=== PATIENT | female | born 1995 | race Two or more races ===

== ENCOUNTER 2017-06-08 08:51 | Day surgery (SDC) | payer OTHER ==
[2017-06-08] VITALS (11 sets, daily range): BP systolic 105–116; BP diastolic 65–76
[~2017-06-08] VITALS: Ht 170.2 cm; Wt 78.9 kg
[~2017-06-08 08:51] MED LIST: NKM; ceFAZolin 1gm in D5W 55ml IVP ONE; celeBREX 200mg Cap **SURGERY PATIENTS ONLY ORAL ONE; oxyCONTIN 20mg tab ORAL ONE
[2017-06-08] MEDS ORDERED: celeBREX 200mg Cap **SURGERY PATIENTS ONLY ORAL ONE (10:46)
[2017-06-08] MEDS ORDERED: Kenalog-40 1ml Vial ONE (11:09)
[2017-06-08] MEDS ORDERED: EPINEPHrine 1mg/1ml Amp ONE (11:10)
[2017-06-08] MEDS ORDERED: Lidocaine 1% 10mg/ml/Epi 0.005mg/ml 30ml vial INJ ONE (11:10)
[2017-06-08] MEDS ORDERED: Ketorolac 30mg Inj ONE ×2 (11:10→12:30)
[2017-06-08] MEDS ORDERED: Bupivacaine 0.5% Inj 30 ml vial INJ ONE (11:10)
[2017-06-08] MEDS ORDERED: Ropivacaine 5mg/ml Vial 30ml INJ ONE (11:10)
[2017-06-08] MEDS ORDERED: Neostigmine 1mg/ml 10ml Inj ONE (12:30)
[2017-06-08] MEDS ORDERED: Metoclopramide 10mg/2ml Inj ONE (12:30)
[2017-06-08] MEDS ORDERED: Propofol 200mg/20ml IV ONE (12:30)
[2017-06-08] MEDS ORDERED: Dexamethasone 4mg/ml vial ONE (12:30)
[2017-06-08] MEDS ORDERED: LR 1000ml ONE (12:30)
[2017-06-08] MEDS ORDERED: Midazolam 2mg/2ml Inj ONE (12:30)
[2017-06-08] MEDS ORDERED: Lidocaine 1% MPF 10mg/ml 5ml ONE (12:30)
[2017-06-08] MEDS ORDERED: Zemuron 50mg/5ml Inj IV ONE (12:30)
[2017-06-08] MEDS ORDERED: Glycopyrrolate 0.2mg/ml 1ml Vial ONE (12:30)
[2017-06-08] MEDS ORDERED: NS Irrig 1000ml ONE (12:30)
[2017-06-08] MEDS ORDERED: fentaNYL 100 mcg/2 mL IV ONE (12:30)
[2017-06-08] MEDS ORDERED: Sterile Water Irrig 1000ml IRRIG ONE (12:30)
[2017-06-08] MEDS ORDERED: Bacitracin Irrig 1000ml IRRIG ONE (12:40)
--- NOTE | 2017-06-08 12:44 | Pre-Procedure Note/Attestation ---
Pre-Procedure Note/Attestation Complete Prior to Procedure Planned Procedure: right Procedure Narrative: shoulder AC joint reconstruction Indications for Procedure Pre-Operative Diagnosis: right ac joint dislocation Attestation I attest that I discussed the nature of the procedure; its benefits; risks and complications; and alternatives (and the risks and benefits of such alternatives ), prior to the procedure, with the patient (or the patient's legal auto service representative). I attest that, if there was a reasonable possibility of needing a blood transfusion, the patient (or the patient's legal auto service representative) was given the [facility] standardized written summary, pursuant to the [employer]harath [employer]compte Blood Safety Act ([place] Health and Safety Code # 1645, as amended). I attest that I re-evaluated the patient just prior to the surgery and that there has been no change in the patient's H&P, except as documented below: CORDELIA ARROYO Jun 08, 2017 12:44
--- NOTE | 2017-06-08 12:45 | Operative Note - PDOC ---
Operative Note Operative Note Pre-op Diagnosis: right ac joint dislocation Procedure: right ac joint reconstruction Post-op Diagnosis: same as pre-op plus Operative Findings: consistent w/pre-op dx studies Anesthesia: regional Specimen: none Complications: none Condition: stable Estimated Blood Loss: none Implant(s) used?: Yes CORDELIA ARROYO Jun 08, 2017 12:45
[2017-06-08] MEDS ORDERED: Metoclopramide 10mg/2ml Inj IVP PRN ×2 (14:00→14:45)
[2017-06-08] MEDS ORDERED: DiphenhydrAMINE 50mg/ml Inj IVP PRN (14:00)
[2017-06-08] MEDS ORDERED: Acetaminophen (Non formulary) 100 ML IV ONE (14:00)
[2017-06-08] MEDS ORDERED: fentaNYL 100 mcg/2 mL IV PRN (14:00)
--- NOTE | 2017-06-08 14:07 | Anethesia Preoperative Eval ---
Anesthesia Pre-op PMH/ROS General Date of Evaluation: Jun 08, 2017 Time of Evaluation: 12:30 Anesthesiologist: joann ASA Score: ASA 1 Mallampati Score Class I : Soft palate, uvula, fauces, pillars visible Class II: Soft palate, uvula, fauces visible Class III: Soft palate, base of uvula visible Class IV: Only hard plate visible Mallampati Classification: Class II Surgeon: john Diagnosis: shoulder ligament tear Surgical Procedure: right shoulder ligament repair Anesthesia History: none Family History: no anesthesia problems Allergies: Coded Allergies: No Known Allergies (Unverified , 06/07/17) Medications: see eMAR Past Medical History Cardiovascular: Denies: HTN, CAD, VT, valve dz, arrhythmia, other Pulmonary: Denies: asthma, COPD, TERE, other Gastrointestinal/Genitourinary: Denies: GERD, CRI, ESRD, other Neurologic/Psychiatric: Denies: dementia, CVA, depression/anxiety, TIA, other Endocrine: Denies: DM, hypothyroidism, steroids, other HEENT: Denies: cataract (L), cataract (R), glaucoma, ABSENTEE-SHAWNEE (L), ABSENTEE-SHAWNEE (R), other Hematology/Immune: Denies: anemia, DVT, bleeding disorder, other Musculoskeletal/Integumentary: Denies: OA, RA, DJD, DDD, edema, other PSxH Narrative: none Anesthesia Pre-op Phys. Exam Physician Exam Last Vital Signs Date Time Temp Pulse Resp B/P (MAP) Pulse Ox O2 Delivery O2 Flow Rate FiO2 06/08/17 09:55 98.9 71 16 116/66 97 Room Air Constitutional: NAD Neurologic: CN 2-12 intact Cardiovascular: RRR Respiratory: CTA Gastrointestinal: S/NT/ND Airway Exam Mallampati Classification 2 Mallampati Score: Class II MO: full Neck: normal TMD: 2fb ROM: full Dentures: no upper, no lower Anesthesia Pre-op A/P Labs Urine Test Test 06/08/17 09:00 Urine HCG, Qualitative Negative Studies Pre-op Studies: EKG - sr Risk Assessment & Plan Plan: general and peripheral nerve block Status Change Before Surgery: No Pre-Antibiotics Drug: ancef Given Within 1 Hr of Incision: Yes Time Given: 12:40 GRICEL GALICIA CRNA Jun 08, 2017 14:07
[2017-06-08] MEDS ORDERED: Bacitracin 50000 Units Vial ONE (14:56)
--- NOTE | 2017-06-08 15:42 | Immediate Post-Op Evaluation ---
Immediate Post-Op Evalulation Immediate Post-Op Evalulation Procedure: right shoulder ligament reconstruction Date of Evaluation: Jun 08, 2017 Time of Evaluation: 15:35 IV Fluids: 800 Blood Pressure Systolic: 110 Blood Pressure Diastolic: 64 Pulse Rate: 97 Respiratory Rate: 14 O2 Sat by Pulse Oximetry: 100 Temperature (Fahrenheit): 97.3 Pain Score (1-10): 0 Nausea: No Vomiting: No Complications pt is difficult intubation with anterior airway; glidescope intubation with moderate difficulty Patient Status: awake, reacts, patent Hydration Status: adequate Drug: ancef Given Within 1 Hr of Incision: Yes Time Given: 12:40 GRICEL GALICIA CRNA Jun 08, 2017 15:42
--- NOTE | 2017-06-08 16:59 | 48 Hour Post Anesthesia Eval ---
Post Anesthesia Evaluation Procedure: right shoulder ligament reconstruction Date of Evaluation: Jun 08, 2017 Time of Evaluation: 16:59 Blood Pressure Systolic: 107 0: 71 Pulse Rate: 90 O2 Sat by Pulse Oximetry: 99 Airway: patent Nausea: No Vomiting: No Hydration Status: adequate Cardiopulmonary Status: stable Mental Status/LOC: patient returned to baseline Follow-up Care/Observations: na Post-Anesthesia Complications: none Follow-up care needed: N/A GRICEL GALICIA CRNA Jun 08, 2017 16:59
[2017-06-08] MEDS ORDERED: Tylenol #3 tab (300mg/30mg) ORAL PRN (20:01)
[2017-06-08] MEDS ORDERED: Norco 5mg/325mg tab ORAL PRN (20:01)
[2017-06-08] MEDS ORDERED: D5 1/2NS 1,000 ML IV SCH (20:01)
[2017-06-08] MEDS ORDERED: HYDROmorphone 1mg/ml Carpuject SUBQ PRN (20:01)
--- NOTE | 2017-06-08 21:00 | Operative Note - Dictated ---
DATE OF OPERATION: 06/08/2017 PREOPERATIVE DIAGNOSIS: Right grade V acromioclavicular joint separation. POSTOPERATIVE DIAGNOSIS: Right grade V acromioclavicular joint separation. PROCEDURES: 1. Right shoulder coracoclavicular ligament reconstruction with tibialis anterior allograft. 2. Right open acromioclavicular joint resection. SURGEON: Manpreet Gilliam M.D. ANESTHESIA: Interscalene general. INDICATION FOR PROCEDURE: The patient is a pleasant female, who sustained a grade IV AC joint separation with significant clinical pain, instability, elected undergo coracoclavicular ligament reconstruction, tibialis anterior allograft. Risks, limitations, expectations and complication of the procedure were discussed in detail including need for future surgery, risk of fracture, infection, neurovascular damage, risk of anesthesia, medical complications, etc. All questions addressed. DESCRIPTION OF PROCEDURE: An informed consent was obtained. The patient was brought to the operating room. The patient was placed under interscalene general anesthesia. The patient was then carefully placed in a beach-chair position. Right shoulder was prepped and draped in a sterile manner. Time-out was performed. Standard anterior skin incision centered along the AC joint and coracoid was made. Subcutaneous flaps were created with deltoid-trapezius fascia along the acromial split horizontally. The clavicle was in the subcutaneous tissue. The distal end of the clavicle was then identified. Once this was done, 5 mm of the distal clavicle was resected. Once the resection was performed, two drill holes were placed for recreation of the trapezoid and conoid ligaments. At this point, the coracoid process was identified. A passing wire was placed underneath. The graft was passed from mediolateral. Once that was completed and the graft along with the fiber tape was passed, the graft passed through the drill holes from the clavicle. Once this was done, the fiber tape was then used to temporarily hold fixation of the clavicle. Once this was secured, the graft was then tied on itself. The acromioclavicular ligament was reconstructed through drill holes as well. Once this was done, the fascial graft was tied upon itself. At the end of the surgery, the reconstruction was nice and stable. At this point, the wound was copiously irrigated. The trapezial fascia was approximated with 0 Vicryl suture. Subcutaneous tissue was approximated using 2-0 Vicryl suture. Monocryl and Dermabond dressing was applied. The patient was awoken and taken to recovery room with stable signs. ESTIMATED BLOOD LOSS: 50 mL. COMPLICATIONS: None. SPECIMENS: None. IMPLANTS: Tibialis anterior allograft. Manpreet Gilliam M.D. DR: LUCY JOB#: [id number] CC:
== END 2017-06-08 17:15 | disposition home or self-care (01) ==
LOC: SUR 08:51
DX: S43.101A Unspecified dislocation of right acromioclavicular joint, initial encounter (principal); S43.51XA Sprain of right acromioclavicular joint, initial encounter; V03.99XA Pedestrian with other conveyance injured in collision with car, pick-up truck or van, unspecified whether traffic or nontraffic accident, initial encounter; Y93.9 Activity, unspecified; Y92.410 Unspecified street and highway as the place of occurrence of the external cause; Z87.891 Personal history of nicotine dependence; Z90.89 Acquired absence of other organs
CPT/HCPCS: 23470; 81025; J0690; J1100; J1885; J2250; J2405; J2704; J2710; J2765; J2795; J3010; J7120; 94003; 94150